=== PATIENT | female | born 1945 | race African-American/Black ===

== ENCOUNTER 2016-08-27 15:03 | Emergency (ER) | payer MEDICARE ==
[2016-08-27] MEDS ORDERED: Acetaminophen/Codeine 30-300mg Tablet ONE (15:42)
[2016-08-27] MEDS ORDERED: Ciprofloxacin 500 MG TAB ONE (15:42)
[2016-08-27] MEDS ORDERED: Cephalexin 500 MG CAP ONE (15:42)
== END 2016-08-27 16:05 | disposition home or self-care (01) ==
LOC: MADERS 15:03
DX: T63.461A Toxic effect of venom of wasps, accidental (unintentional), initial encounter (principal); L08.9 Local infection of the skin and subcutaneous tissue, unspecified; E11.9 Type 2 diabetes mellitus without complications; I10 Essential (primary) hypertension; Z79.84 Long term (current) use of oral hypoglycemic drugs; Z79.82 Long term (current) use of aspirin; Z79.4 Long term (current) use of insulin; Z79.899 Other long term (current) drug therapy
CPT/HCPCS: 99282

== ENCOUNTER 2018-06-02 12:55 | Emergency (ER) | payer MEDICARE | END 2018-06-02 14:15 | disposition home or self-care (01) | LOC: MADERS 12:55 | DX: J06.9 Acute upper respiratory infection, unspecified (principal); J30.9 Allergic rhinitis, unspecified; E11.9 Type 2 diabetes mellitus without complications; I10 Essential (primary) hypertension; Z79.82 Long term (current) use of aspirin; Z79.4 Long term (current) use of insulin | CPT/HCPCS: 99283 ==

== ENCOUNTER 2023-02-08 12:39 | Emergency (ER) | payer MEDICARE ==
[2023-02-08] MEDS ORDERED: Ondansetron PF 4 MG/2 ML Vial ONE (13:13)
[2023-02-08] MEDS ORDERED: Ketorolac Tromethamine 30 MG/ML VIAL ONE (13:13)
[2023-02-08] MEDS ORDERED: Dicyclomine 20 MG/2 ML VIAL ONE (13:13)
[2023-02-08 13:23] LABS: #Basophils 0.1 thou/uL (0.0-0.2); #Lymphocytes 1.5 thou/uL (1.20-3.40); #Monocytes 0.5 thou/uL (0.11-0.59); #Neutrophils 4.7 thou/uL (1.40-6.50); %Basophils 0.9 % (0.0-1.0); %Eosinophils 0.4 % (0.0-10.0); %Lymphocytes 21.9 % (21.0-51.0); %Monocytes 7.5 % (0.0-10.0); %Neutrophils 69.4 % (42.0-75.0); Hematocrit 45.6 % (36.0-47.0); Hemoglobin 14.3 g/dL (12.0-16.0); Mean Corpuscular HGB CONC 31.3 g/dL (32.0-36.0); Mean Corpuscular Hemoglobin 27.5 pg (27.0-31.0); Mean Platelet Volume 10.3 fL (7.4-10.4); Platelet Count 204 10x3/uL (130-400); RBC Distribution Width 13.6 % (11.5-14.5); Red Blood Cell (RBC) Count 5.18 mill/uL (4.20-5.40); White Blood Cell (WBC) Count 6.8 10x3/uL (4.8-10.8)
[2023-02-08 13:30] LABS: ALT (SGPT) 27 U/L (8-55); AST (SGOT) 23 U/L (5-34); Albumin 4.2 g/dL (3.4-4.8); Alkaline Phosphatase 95 U/L (40-110); Anion Gap 15 mmol/L (10-20); BUN (Urea Nitrogen) 15 mg/dL (9.8-20.1); Bilirubin, Total 0.5 mg/dL (0.2-1.2); Calc. Creatinine Clearance 0 mL/min (70-130); Calcium 9.4 mg/dL (7.8-10.44); Carbon Dioxide 30 mmol/L (23-31); Chloride 102 mmol/L (98-107); Estimated GFR 69; Globulin 3.1 g/dL (2.4-3.5); Glucose 125 mg/dL (83-110); Lipase 27 U/L (8-78); Potassium 3.5 mmol/L (3.5-5.1); Protein, Total 7.3 g/dL (5.8-8.1); Sodium 143 mmol/L (136-145); Troponin I Less than 0.010 ng/mL (< 0.028)
[2023-02-08] MEDS ORDERED: Mineral Oil ENEMA ONE (13:40)
[2023-02-08 15:31] LABS: Bilirubin Negative (Negative); Blood, Urine Negative (Negative); Clarity Clear (Clear); Glucose, Urine (Dipstick) 500 mg/dL (Negative); Ketone, Urine Trace mg/dL (Negative); Leukocyte Negative (Negative); Nitrite Negative (Negative); Protein, Urine (Dipstick) Trace mg/dL (Neg-Trace); Specific Gravity, Urine 1.025 (1.005-1.030); Urobilinogen 0.2 mg/dL (Less than 2); pH, Urine 6.5 (5.0-9.0)
[2023-02-08 15:39] LABS: Bacteria/HPF Rare-Few HPF (None Seen); CAUTI Indications for Culture Pelvic or flank pain; Mucous/LPF 1+ LPF (<2+); RBC/HPF None Seen HPF (0-3); Squamous Epithelial 0-3 HPF (0-3); Urine Culture Reflex No No; WBC/HPF 0-3 HPF (0-3)
[2023-02-08] MEDS ORDERED: Bisacodyl 10 MG SUPP ONE (15:42)
== END 2023-02-08 15:55 | disposition home or self-care (01) ==
LOC: MADERS 12:39
DX: K59.00 Constipation, unspecified (principal); K64.4 Residual hemorrhoidal skin tags; E11.9 Type 2 diabetes mellitus without complications; K21.9 Gastro-esophageal reflux disease without esophagitis; I10 Essential (primary) hypertension; Z79.4 Long term (current) use of insulin; Z79.82 Long term (current) use of aspirin; Z79.899 Other long term (current) drug therapy
CPT/HCPCS: 74018; 80053; 81001; 82274; 83605; 83690; 84484; 85025; 96372; 96374; 96375; J1885; J2405

== ENCOUNTER 2023-10-18 16:18 | Emergency (ER) | payer MEDICARE | END 2023-10-18 16:38 | disposition home or self-care (01) | LOC: MADERS 16:18 | DX: U07.1 COVID-19 (principal); E11.9 Type 2 diabetes mellitus without complications; I10 Essential (primary) hypertension; Z79.4 Long term (current) use of insulin | CPT/HCPCS: 99283 ==

== ENCOUNTER 2024-10-28 11:38 | Emergency (ER) | payer MEDICARE | END 2024-10-28 12:25 | disposition home or self-care (01) | LOC: MADERS 11:38 | DX: J20.9 Acute bronchitis, unspecified (principal); R09.82 Postnasal drip; E78.5 Hyperlipidemia, unspecified; I10 Essential (primary) hypertension; E11.42 Type 2 diabetes mellitus with diabetic polyneuropathy; K21.9 Gastro-esophageal reflux disease without esophagitis; Z79.899 Other long term (current) drug therapy; Z79.4 Long term (current) use of insulin; Z79.82 Long term (current) use of aspirin | CPT/HCPCS: 71046; 99283 ==